=== PATIENT | female | born 1965 | race African-American/Black ===

== ENCOUNTER → 2021-03-13 | Day surgery (SDC) | payer OTHER ==
[2021-03-09 13:27] VITALS: BMI 34.0
[2021-03-13 11:14] VITALS: TEMP 96.6
[2021-03-13 11:29] VITALS: BP 117/73; PULSE 77
== END | disposition home or self-care (01) ==
LOC: FASU-ENDO 09:36
PROVIDERS: ATTEND Internal Medicine Gastroenterology
PROC: 0DJD8ZZ Inspection of Lower Intestinal Tract, Via Natural or Artificial Opening Endoscopic (ICD-10-PCS; principal; 2021-03-13 10:47)
DX: Z12.11 Encounter for screening for malignant neoplasm of colon (principal); K64.8 Other hemorrhoids